=== PATIENT | female | born 1945 | race Caucasian/White ===

== ENCOUNTER 2018-01-03 11:38 | Outpatient (CLI) | payer MEDICARE, BC ==
[2018-01-03 13:31] LABS: Estimated GFR-MDRD - POC Greater than 90
--- NOTE | 2018-01-03 16:50 | MRI ---
MRI ABDOMEN WITH AND WITHOUT IV CONTRAST: HISTORY: Crohn's disease, stricture, recent biopsy of the small bowel. FINDINGS: The liver, spleen, pancreas, adrenal glands, and left kidney are normal. There are small cysts in th e inferior pole of the right kidney. No definite gallstones are seen. No free fluid or lymphadenopa thy is seen. The bone marrow signal is normal. The small bowel loops are not abnormally dilated. However, there is a long-segment wall thickening a nd stricture of the terminal ileum. There is sigmoid diverticulosis. There is fluid in the distende d stomach. There is postcontrast enhancement of the wall. IMPRESSION: 1. Long-segment wall thickening and narrowing/stricture of the terminal ileum without proximal small bowel dilatation. High-grade small bowel obstruction. 2. Right renal cyst. 3. Sigmoid diverticulosis. POS: OFF
== END 2018-01-03 11:39 | disposition home or self-care (01) ==
LOC: MRI 11:38
PROVIDERS: ATTEND Internal Medicine Gastroenterology
DX: K50.90 Crohn's disease, unspecified, without complications (principal); K56.699 Other intestinal obstruction unspecified as to partial versus complete obstruction; M06.9 Rheumatoid arthritis, unspecified; N28.1 Cyst of kidney, acquired; K57.30 Diverticulosis of large intestine without perforation or abscess without bleeding
CPT/HCPCS: 74183; 82565; J1610

== ENCOUNTER 2018-01-23 10:26 | Outpatient (CLI) | payer MEDICARE, BC | END 2018-01-23 10:27 | disposition home or self-care (01) | LOC: BICMAMMO 10:26 | PROVIDERS: ATTEND Internal Medicine Rheumatology | DX: M81.8 Other osteoporosis without current pathological fracture (principal); M85.89 Other specified disorders of bone density and structure, multiple sites; C79.51 Secondary malignant neoplasm of bone; C50.311 Malignant neoplasm of lower-inner quadrant of right female breast; C18.4 Malignant neoplasm of transverse colon; M05.79 Rheumatoid arthritis with rheumatoid factor of multiple sites without organ or systems involvement | CPT/HCPCS: 77080 ==

== ENCOUNTER 2018-12-04 12:52 | Outpatient (CLI) | payer MEDICARE, BC ==
--- NOTE | 2018-12-04 15:04 | RAD ---
MANDIBLE: History: Left TMJ pain. FINDINGS: Bones appear somewhat demineralized. There is arthritic changes of the condyle region with suggestion of some more pronounced degenerative changes of the left condyle as compared to the right. Both cond yles are difficult to visualize on these views. IMPRESSION: Arthritic changes of the condyle region which appears to be more pronounced on the left side. POS: TPC
== END 2018-12-04 12:53 | disposition home or self-care (01) ==
LOC: BICRAD 12:52
PROVIDERS: ATTEND Internal Medicine Rheumatology
DX: M81.8 Other osteoporosis without current pathological fracture (principal); T38.0X5A Adverse effect of glucocorticoids and synthetic analogues, initial encounter; M26.69 Other specified disorders of temporomandibular joint
CPT/HCPCS: 70110

== ENCOUNTER 2019-12-17 12:30 | Outpatient (CLI) | payer MEDICARE, BC ==
--- NOTE | 2019-12-20 13:29 | MMO ---
Bilateral MAMMO Bilat Screen [facility]. CLINICAL HISTORY: Patient is 74 years old and is seen for screening. The patient has no family history of breast cancer. The patient has no personal history of cancer. VIEWS: The views performed were: bilateral craniocaudal with tomosynthesis and bilateral mediolateral oblique with tomosynthesis. FILMS COMPARED: The present examination has been compared to a prior imaging study performed at [facility] [place] on 12/09/2015. This study has been interpreted with the assistance of computer-aided detection. MAMMOGRAM FINDINGS: There are scattered fibroglandular densities. Finding 1: There are stable benign appearing calcifications seen in both breasts. Finding 2: There are stable benign appearing densities seen in both breasts. There are no suspicious masses, suspicious calcifications, or new areas of architectural distortion. IMPRESSION: THERE IS NO MAMMOGRAPHIC EVIDENCE OF MALIGNANCY. A ROUTINE FOLLOW-UP MAMMOGRAM IN 1 YEAR IS RECOMMENDED. THE RESULTS OF THIS EXAM WERE SENT TO THE PATIENT. ACR BI-RADS Category 2 - Benign finding MAMMOGRAPHY NOTE: 1. A negative mammogram report should not delay a biopsy if a dominant of clinically suspicious mass is present. 2. Approximately 10% to 15% of breast cancers are not detected by mammography. 3. Adenosis and dense breasts may obscure an underlying neoplasm. Reported by: MOJGAN RODRIGUEZ MD Electonically Signed: [id number]
== END 2019-12-17 12:31 | disposition home or self-care (01) ==
LOC: BICMAMMO 12:30
PROVIDERS: ATTEND Family Medicine
DX: Z12.31 Encounter for screening mammogram for malignant neoplasm of breast (principal)
CPT/HCPCS: 77063; 77067

== ENCOUNTER 2020-04-09 10:25 | Outpatient (CLI) | payer MEDICARE, BC ==
--- NOTE | 2020-04-09 12:11 | BD ---
BONE DENSITOMETRY: Date: 04/09/2020 INDICATION: Postmenopausal screening. FINDINGS: Lumbar Spine: BMD (g/cm2) L1 0.770 T-Score: -2.0 L2 0.767 T-Score: -2.4 L3 0.619 T-Score: -4.2 L4 0.611 T-Score: -4.1 Total 0.687 T-Score: -3.3 Left Femoral Neck: 0.484 T-Score: -3.3 Total Femur: 0.531 T-Score: -3.4 IMPRESSION: Bone mineral density of the lumbar spine and femoral neck both indicate osteopenia. 10 YEAR FRACTURE RISK: Major osteoporotic fracture: 27% Hip fracture: 13% POS: AGW
== END 2020-04-09 10:26 | disposition home or self-care (01) ==
LOC: BICMAMMO 10:25
PROVIDERS: ATTEND Internal Medicine Rheumatology
DX: M81.8 Other osteoporosis without current pathological fracture (principal)
CPT/HCPCS: 77080

== ENCOUNTER 2021-07-29 13:16 | Outpatient (CLI) | payer MEDICARE, BC | END 2021-07-29 13:17 | disposition home or self-care (01) | LOC: BICMAMMO 13:16 | PROVIDERS: ATTEND Family Medicine | DX: Z12.31 Encounter for screening mammogram for malignant neoplasm of breast (principal) | CPT/HCPCS: 77063; 77067 ==

== ENCOUNTER 2022-04-21 09:46 | Outpatient (CLI) | payer MEDICARE, BC | END 2022-04-21 09:47 | disposition home or self-care (01) | LOC: BICMAMMO 09:46 | PROVIDERS: ATTEND Internal Medicine Rheumatology | DX: M81.0 Age-related osteoporosis without current pathological fracture (principal) | CPT/HCPCS: 77080 ==

== ENCOUNTER 2023-09-08 10:50 | Outpatient (CLI) | payer MEDICARE, BC | END 2023-09-08 10:51 | disposition home or self-care (01) | LOC: BICMAMMO 10:50 | PROVIDERS: ATTEND Student in an Organized Health Care Education/Training Program | DX: Z12.31 Encounter for screening mammogram for malignant neoplasm of breast (principal) | CPT/HCPCS: 77063; 77067 ==

== ENCOUNTER 2024-01-15 21:26 | Inpatient (IN) | payer MEDICARE, BC ==
[2024-01-15] MEDS ORDERED: Ondansetron PF 4 MG/2 ML Vial IVP PRN (21:57)
[2024-01-15 22:09] VITALS: BMI 18.9
[2024-01-15] MEDS: Sodium Chloride 0.9% 1,000 ML IV SCH (22:53)
[2024-01-16] MEDS ORDERED: Morphine 4 MG/ML VIAL SLOW IVP PRN
[2024-01-16 05:30] LABS: #Monocytes 0.3 thou/uL (0.11-0.59); #Neutrophils 7.4 thou/uL (1.40-6.50); %Basophils 0.1 % (0.0-1.0); %Lymphocytes 11.4 % (21.0-51.0); %Monocytes 3.3 % (0.0-10.0); %Neutrophils 84.6 % (42.0-75.0); Hematocrit 35.8 % (36.0-47.0); Hemoglobin 11.8 g/dL (12.0-16.0); Mean Corpuscular Hemoglobin 31.3 pg (27.0-31.0); Mean Platelet Volume 11.3 fL (7.4-10.4); Platelet Count 151 10x3/uL (130-400); RBC Distribution Width 14.3 % (11.5-14.5); Red Blood Cell (RBC) Count 3.77 mill/uL (4.20-5.40); White Blood Cell (WBC) Count 8.8 10x3/uL (4.8-10.8)
[2024-01-16 06:12] LABS: ALT (SGPT) 17 U/L (8-55); AST (SGOT) 19 U/L (5-34); Albumin 3.5 g/dL (3.4-4.8); Alkaline Phosphatase 35 U/L (40-110); Anion Gap 9 mmol/L (10-20); BUN (Urea Nitrogen) 12 mg/dL (9.8-20.1); Calc. Creatinine Clearance 47 mL/min (70-130); Calcium 8.1 mg/dL (7.8-10.44); Carbon Dioxide 26 mmol/L (23-31); Chloride 110 mmol/L (98-107); Estimated GFR 88; Globulin 2.3 g/dL (2.4-3.5); Glucose 125 mg/dL (83-110); Potassium 4.2 mmol/L (3.5-5.1); Protein, Total 5.8 g/dL (5.8-8.1); Sodium 141 mmol/L (136-145)
[2024-01-16] MEDS: methylPREDNISolone Sod Succ 40 MG VIAL IVP SCH (06:16)
[2024-01-16] MEDS: Pantoprazole 40 MG VIAL IVP SCH (08:00)
[2024-01-16] MEDS: metroNIDAZOLE 500 MG in Premix 1 BAG IVPB SCH (14:49)
[2024-01-16] MEDS: LevoFLOXacin 750 mg/D5W 750 MG in Premix 1 BAG IVPB SCH (15:53)
[2024-01-17 04:57] LABS: #Monocytes 0.5 thou/uL (0.11-0.59); #Neutrophils 7.1 thou/uL (1.40-6.50); %Basophils 0.1 % (0.0-1.0); %Lymphocytes 10.1 % (21.0-51.0); %Monocytes 5.5 % (0.0-10.0); %Neutrophils 83.6 % (42.0-75.0); Hemoglobin 10.8 g/dL (12.0-16.0); Mean Corpuscular HGB CONC 32.7 g/dL (32.0-36.0); Mean Corpuscular Hemoglobin 31.1 pg (27.0-31.0); Mean Corpuscular Volume 95.1 fl (78.0-98.0); Mean Platelet Volume 11.2 fL (7.4-10.4); RBC Distribution Width 14.6 % (11.5-14.5); Red Blood Cell (RBC) Count 3.47 mill/uL (4.20-5.40); White Blood Cell (WBC) Count 8.5 10x3/uL (4.8-10.8)
[2024-01-17 05:17] LABS: Platelet Count 122 10x3/uL (130-400)
[2024-01-17 05:45] LABS: ALT (SGPT) 20 U/L (8-55); AST (SGOT) 29 U/L (5-34); Albumin 3.5 g/dL (3.4-4.8); Alkaline Phosphatase 31 U/L (40-110); Anion Gap 10 mmol/L (10-20); BUN (Urea Nitrogen) 13 mg/dL (9.8-20.1); Bilirubin, Total 0.8 mg/dL (0.2-1.2); Calc. Creatinine Clearance 50 mL/min (70-130); Calcium 7.5 mg/dL (7.8-10.44); Carbon Dioxide 21 mmol/L (23-31); Chloride 113 mmol/L (98-107); Estimated GFR 89; Globulin 2.1 g/dL (2.4-3.5); Glucose 121 mg/dL (83-110); Potassium 3.9 mmol/L (3.5-5.1); Protein, Total 5.6 g/dL (5.8-8.1); Sodium 140 mmol/L (136-145)
[2024-01-17 07:56] VITALS: BP 119/66; TEMP 97.5
== END 2024-01-17 11:10 | disposition home or self-care (01) | DRG 387 ==
LOC: MSONC 21:26
PROVIDERS: ADMIT Internal Medicine; ATTEND Family Medicine
DX: K50.012 Crohn's disease of small intestine with intestinal obstruction (principal); M06.9 Rheumatoid arthritis, unspecified; Z79.899 Other long term (current) drug therapy; Z87.891 Personal history of nicotine dependence; K57.30 Diverticulosis of large intestine without perforation or abscess without bleeding
CPT/HCPCS: 36415; 80053; 85025; 86140; C9113; J1956; J2920; J7050

== ENCOUNTER 2024-08-30 08:52 | Outpatient (CLI) | payer MEDICARE, BC | END 2024-08-30 08:53 | disposition home or self-care (01) | LOC: BICMAMMO 08:52 | PROVIDERS: ATTEND Internal Medicine Rheumatology | DX: M81.0 Age-related osteoporosis without current pathological fracture (principal) | CPT/HCPCS: 77080 ==